=== PATIENT | female | born 1980 | race Caucasian/White ===

== ENCOUNTER 2017-02-15 12:19 | Emergency (ER) | payer OTHER ==
[~2017-02-15] VITALS: Wt 54.4 kg
[~2017-02-15 12:19] MED LIST: AMOXICILLIN500 M2 PO; ANAPROX DS550 MG PO; CLINDAMYCIN HC300 MG PO; COMPAZINE10 MG PO; CYCLOBENZAPRINE10 MG PO; FLAGYL500 MG PO; HYDROCODONE BIT1 T11 PO; MEDROL DOSEPAK4 MG PO; MUCINEX600 MG PO; NAPROSYN500 MG PO; NEURONTIN100 MG PO; NKHM; NORCO 10-325 T1 EACH PO; NORCO 5-325 TA1 EACH PO; PREDNISONE10 MG PO; PROTONIX40 MG PO; PROVENTIL0.09 MG/AC IH; ULTRAM50 MG PO; VOLTAREN50 M1 PO; ZITHROMAX Z PA250 MG PO
[2017-02-15 12:49] LABS: BASO % 0.1 % (0.0-1.0); EOS % 0.1 % (1.0-4.0); HEMATOCRIT 41.1 % (37.0-47.0); HEMOGLOBIN 14.5 g/dl (12.0-16.0); LYMPH # 1.9 10*3/uL (1.3-4.4); LYMPH % 13.2 % (27.0-41.0); MEAN CELL VOLUME 87.6 fl (81.0-99.0); MEAN CORPUSCULAR HGB 30.9 pg (27.0-31.0); MEAN CORPUSCULAR HGB CONC 35.3 g/dl (33.0-37.0); MEAN PLATELET VOLUME 9.3 fl (9.6-12.3); MONO # 0.7 10*3/uL (0.1-1.0); MONO % 5.3 % (3.0-9.0); NEUT # 11.4 10*3/uL (2.3-7.9); NEUT % 80.9 % (47.0-73.0); PLATELET COUNT AUTOMATED 200 10*3/uL (130-400); RED BLOOD COUNT 4.69 10*6/uL (4.10-5.10); RED CELL DISTRI WIDTH 12.1 % (0-14.5); WHITE BLOOD COUNT 14.1 10*3/uL (4.8-10.8)
[2017-02-15 13:04] LABS: ALBUMIN 3.3 gm/dl (3.1-4.5); ALKALINE PHOSPHATASE 64 U/L (45-117); BUN 7 mg/dl (7-24); CHLORIDE 107 mmol/L (98-107); CREATININE 0.62 mg/dL (0.55-1.02); POTASSIUM 3.3 mmol/L (3.5-5.1); SGOT/AST 55 IU/L (3-35); SGPT/ALT 74 U/L (12-78); SODIUM 138 mmol/L (136-145); TOTAL PROTEIN 7.6 gm/dL (6.4-8.2)
[2017-02-15 13:05] LABS: ETHYL ALCOHOL < 3.0 mg/dl (<3)
[2017-02-15 13:21] LABS: BILIRUBIN NEGATIVE (NEGATIVE); BLOOD NEGATIVE (NEGATIVE); CLARITY CLOUDY (CLEAR); COLOR YELLOW (YELLOW); GLUCOSE NEGATIVE (NEGATIVE); KETONE NEGATIVE (NEGATIVE); LEUKO ESTERASE NEGATIVE (NEGATIVE); NITRITE POSITIVE (NEGATIVE); PH 6.5 (5.0-9.0); SPECIFIC GRAVITY <= 1.005 (1.005-1.030)
[2017-02-15 13:28] LABS: URINE AMPHETAMINES < 1000 (1000ng/ml); URINE BARBITURATES < 200 (200ng/ml); URINE BENZODIAZEPINES > 200 (200ng/ml); URINE CANNABINOIDS (THC) < 50 (50ng/ml); URINE COCAINE < 300 (300ng/ml); URINE METHADONE < 300 (300ng/ml); URINE OPIATES < 300 (300ng/ml)
[2017-02-15 13:31] LABS: BACTERIA 4+
[2017-02-15 13:32] LABS: URINE PHENCYCLIDINE < 25 (25ng/ml)
== END 2017-02-15 13:23 | disposition left against medical advice (07) ==
LOC: ED 12:19
PROVIDERS: Emergency Medicine
DX: T40.1X1A Poisoning by heroin, accidental (unintentional), initial encounter (principal); F17.200 Nicotine dependence, unspecified, uncomplicated; F11.10 Opioid abuse, uncomplicated; Z98.890 Other specified postprocedural states; Y92.9 Unspecified place or not applicable

== ENCOUNTER 2017-03-05 10:25 | Emergency (ER) | payer OTHER ==
[~2017-03-05] VITALS: Wt 59.0 kg
[2017-03-05 10:48] VITALS: BP 131/100
[2017-03-05 12:45] LABS: URINE AMPHETAMINES < 1000 (1000ng/ml); URINE BARBITURATES < 200 (200ng/ml); URINE BENZODIAZEPINES < 200 (200ng/ml); URINE CANNABINOIDS (THC) < 50 (50ng/ml); URINE COCAINE < 300 (300ng/ml); URINE METHADONE < 300 (300ng/ml); URINE OPIATES < 300 (300ng/ml)
[2017-03-05 12:46] LABS: URINE PHENCYCLIDINE < 25 (25ng/ml)
== END 2017-03-05 16:47 | disposition left against medical advice (07) ==
LOC: ED 10:25 → EDHOLD 15:51 → ED 15:51 → 5E 16:28 → EDHOLD 16:28 → ED 16:47
PROVIDERS: Physician Assistant
DX: S32.010A Wedge compression fracture of first lumbar vertebra, initial encounter for closed fracture (principal); F11.23 Opioid dependence with withdrawal; F17.200 Nicotine dependence, unspecified, uncomplicated; F14.10 Cocaine abuse, uncomplicated; Z98.890 Other specified postprocedural states; W01.0XXA Fall on same level from slipping, tripping and stumbling without subsequent striking against object, initial encounter; Y93.89 Activity, other specified; Y92.89 Other specified places as the place of occurrence of the external cause; Y99.9 Unspecified external cause status

== ENCOUNTER 2017-03-08 13:45 | Emergency (ER) | payer OTHER ==
[~2017-03-08] VITALS: Wt 59.0 kg
[2017-03-08] MEDS ORDERED: ZOFRAN4 MG PO (14:13)
== END 2017-03-08 14:27 | disposition home or self-care (01) ==
LOC: ED 13:45
DX: F11.20 Opioid dependence, uncomplicated (principal); F17.200 Nicotine dependence, unspecified, uncomplicated; Z98.890 Other specified postprocedural states

== ENCOUNTER 2017-03-10 10:16 | Inpatient (IN) | payer OTHER ==
[~2017-03-10] VITALS: Ht 152.4 cm; Wt 59.0 kg
[~2017-03-10 10:16] MED LIST changes: +ZOFRAN4 MG PO
[2017-03-10 11:35] VITALS: BP 127/84
--- NOTE | 2017-03-10 11:35 | NUR ---
A 36, admitted to , under the services of STERLING Hamilton DO with a diagnosis of OPIATE WITHDRAWL. Chief complaint is OPIATE WITHDRAWL. Patient arrived via ambulatory from [place]. Monitor applied. Initial assessment completed. Vital signs taken and recorded. STERLING HAMILTON DO notified of admission to the unit. Orders received. See assessment for past medical history, medications and allergies. Patient and/or family oriented to unit. [facility] visitation policy reviewed. Clothing/patient valuable form completed. [address]
[2017-03-10 11:59] LABS: BASO % 0.1 % (0.0-1.0); EOS # 0.1 10*3/uL (0.0-0.4); EOS % 1.2 % (1.0-4.0); HEMATOCRIT 43.1 % (37.0-47.0); HEMOGLOBIN 14.5 g/dl (12.0-16.0); LYMPH % 12.6 % (27.0-41.0); MEAN CELL VOLUME 92.9 fl (81.0-99.0); MEAN CORPUSCULAR HGB 31.3 pg (27.0-31.0); MEAN CORPUSCULAR HGB CONC 33.6 g/dl (33.0-37.0); MEAN PLATELET VOLUME 8.8 fl (9.6-12.3); MONO # 0.3 10*3/uL (0.1-1.0); MONO % 4.4 % (3.0-9.0); NEUT # 6.3 10*3/uL (2.3-7.9); NEUT % 81.3 % (47.0-73.0); PLATELET COUNT AUTOMATED 279 10*3/uL (130-400); RED BLOOD COUNT 4.64 10*6/uL (4.10-5.10); RED CELL DISTRI WIDTH 13.4 % (0-14.5); WHITE BLOOD COUNT 7.8 10*3/uL (4.8-10.8)
[2017-03-10 12:00] VITALS: BP 127/84
[2017-03-10 12:16] LABS: ALBUMIN 3.4 gm/dl (3.1-4.5); ALKALINE PHOSPHATASE 110 U/L (45-117); BUN 3 mg/dl (7-24); CHLORIDE 104 mmol/L (98-107); CREATININE 0.67 mg/dL (0.55-1.02); POTASSIUM 4.3 mmol/L (3.5-5.1); SGOT/AST 18 IU/L (3-35); SGPT/ALT 39 U/L (12-78); SODIUM 138 mmol/L (136-145); TOTAL PROTEIN 7.7 gm/dL (6.4-8.2)
[2017-03-10 12:25] LABS: BETA-HCG, QUANT < 1.0 mIU/mL (1-3); ETHYL ALCOHOL < 3.0 mg/dl (<3)
--- NOTE | 2017-03-10 12:30 | NUR ---
PT GIVEN PRN MEDS VISTERAL, BENTYL, ROBOXIN, AND ORDERED SUBUTEX. PT IS CALM AND PLEASENT. WILL CONTINUE TO MONITOR.
[2017-03-10 13:14] LABS: BILIRUBIN NEGATIVE (NEGATIVE); BLOOD NEGATIVE (NEGATIVE); CLARITY CLEAR (CLEAR); COLOR YELLOW (YELLOW); GLUCOSE NEGATIVE (NEGATIVE); KETONE NEGATIVE (NEGATIVE); LEUKO ESTERASE NEGATIVE (NEGATIVE); NITRITE NEGATIVE (NEGATIVE); SPECIFIC GRAVITY <= 1.005 (1.005-1.030); UROBILINOGEN 0.2 E.U./dl (0.2-1.0)
[2017-03-10 13:20] LABS: URINE AMPHETAMINES < 1000 (1000ng/ml); URINE BARBITURATES < 200 (200ng/ml); URINE BENZODIAZEPINES < 200 (200ng/ml); URINE CANNABINOIDS (THC) < 50 (50ng/ml); URINE COCAINE > 300 (300ng/ml); URINE METHADONE < 300 (300ng/ml); URINE OPIATES < 300 (300ng/ml)
[2017-03-10 13:24] LABS: BACTERIA TRACE; WBC 0-2 wbc/hpf (0-5)
[2017-03-10 13:29] LABS: URINE PHENCYCLIDINE < 25 (25ng/ml)
[2017-03-10 16:00] VITALS: BP 130/74
[2017-03-10 20:00] VITALS: BP 127/90
--- NOTE | 2017-03-10 21:30 | NUR ---
Patient reports the following symptoms of withdrawal: body aches, leg pain, nausea and cocaine cravings. Patient given scheduled/PRN medication to control withdrawal symptoms. Close observation will be maintained.
--- NOTE | 2017-03-10 22:30 | NUR ---
Patient resting quietly in bed with eyes closed. PRN medications effective. Will continue to monitor. Call light within reach.
[2017-03-11] VITALS: BP 118/54
--- NOTE | 2017-03-11 00:25 | NUR ---
24 HR chart check completed.
[2017-03-11 04:00] VITALS: BP 114/65
[2017-03-11 08:00] VITALS: BP 115/50
[2017-03-11 12:00] VITALS: BP 122/87
--- NOTE | 2017-03-11 15:15 | NUR ---
PATIENT WAS CAUGHT SMOKING IN THE SHOWER BY A STAFF MEMBER. EXPLAINED TO THE PATIENT THE IMPORTANCE OF ADHERING TO THE NO SMOKING POLICY & THE RISK SHE IS PUTTING ON THE UNIT BECAUSE OF THE OXYGEN USE. OTHER METHODS OF NICOTINE CONTROL ARE BEING OFFERED.
--- NOTE | 2017-03-11 15:43 | NUR ---
D/C PLANNING: PATIENT'S PLAN OF ACTION IS GOING TO OUTPATIENT TREATMENT AT [facility] [place]. PATIENT WANTS THE VIVITROL SHOT. TJ PHELPS B.A. VP PURCHASING
[2017-03-11 16:00] VITALS: BP 138/87
--- NOTE | 2017-03-11 18:30 | NUR ---
PER PATIENT C/O ANXIETY, MUSCLE ACHES, AND NAUSEA, VISTARIL, ZOFRAN, AND ROBAXIN WERE GIVEN. WILL MONITOR.
--- NOTE | 2017-03-11 19:50 | NUR ---
PATIENT RESTING QUIETLY IN BED WITH FAMILY AT BEDSIDE. PATIENT HAS NO COMPLAINTS AT THE MOMENT. PLEASANT/COOPERATIVE WITH CARE. RESPIRATIONS ARE EASY/REG. NO SXS OF DISTRESS. CALL LIGHT IS IN REACH. WILL MONITOR.
[2017-03-11 20:00] VITALS: BP 142/86
--- NOTE | 2017-03-11 21:49 | NUR ---
Patient reports the following symptoms of withdrawal: body aches, leg pain, nausea and cravings. Patient given scheduled/PRN medication to control withdrawal symptoms. Close observation will be maintained.
--- NOTE | 2017-03-11 22:50 | NUR ---
Patient resting. Responding to scheduled medications with fewer complaints of pain and anxiety.
[2017-03-12] VITALS: BP 140/85
--- NOTE | 2017-03-12 03:55 | NUR ---
PATIENT SLEEPING. RESPIRATIONS EASY/REG. NO SXS OF DISTRESS. CALL LIGHT IS IN REACH. WILL MONITOR
--- NOTE | 2017-03-12 09:30 | NUR ---
PATIENT GIVEN ROBAXIN, VISTARIL, AND REQUIP FOR MUSCLE ACHES, ANXIETY, AND RESTLESS LEGS. WILL MONITOR EFFECTIVENESS. CALL LIGHT IN REACH.
[2017-03-12 09:58] VITALS: BP 124/88
--- NOTE | 2017-03-12 10:01 | NUR ---
BOOKBINDER CHIEF BJ [facility] IN TO SEE PATIENT.
--- NOTE | 2017-03-12 10:30 | NUR ---
ROBAXIN, VISTARIL, AND REQUIP EFFECTIVE. PATIENT RESTING IN BED AT THIS TIME. CALL LIGHT IN REACH.
--- NOTE | 2017-03-12 15:54 | NUR ---
D/C PLAN: PATIENT IS GOING TO [facility] FOR THE VIVITROL SHOT. PATIENT IS AWARE OF APPOINTMENT DATE AND TIME. PATIENT UNDERSTANDS AND AGREES TO AFTERCARE PLAN. Sharath LARSEN COORDINATOR
[2017-03-12 16:00] VITALS: BP 126/62
--- NOTE | 2017-03-12 16:02 | NUR ---
PATIENT GIVEN ROBAXIN AND VISTARIL FOR MUSCLE ACHES AND ANXIETY. WILL MONITOR FOR EFFECTIVENESS. CALL LIGHT IN REACH.
--- NOTE | 2017-03-12 17:00 | NUR ---
ROBAXIN AND VISTARIL EFFECTIVE. PATIENT RESTING IN BED. CALL LIGHT IN REACH.
--- NOTE | 2017-03-12 17:47 | NUR ---
PATIENT LEFT [facility]J HANSEN AND NURSING MERCURY RECOVERER NOTIFIED.
== END 2017-03-12 17:47 | disposition left against medical advice (07) | DRG 894 ==
LOC: 4E 10:16
PROVIDERS: Hospitalist; ADMIT Internal Medicine
DX: F11.23 Opioid dependence with withdrawal (principal); E44.1 Mild protein-calorie malnutrition; F14.10 Cocaine abuse, uncomplicated; F17.210 Nicotine dependence, cigarettes, uncomplicated; Z53.21 Procedure and treatment not carried out due to patient leaving prior to being seen by health care provider; Z87.311 Personal history of (healed) other pathological fracture; Z98.891 History of uterine scar from previous surgery; Z82.49 Family history of ischemic heart disease and other diseases of the circulatory system; Z68.25 Body mass index [BMI] 25.0-25.9, adult

== ENCOUNTER 2023-12-30 20:45 | Emergency (ER) | payer OTHER ==
[~2023-12-30] VITALS: Ht 152.4 cm; Wt 59.0 kg
[2023-12-30] MEDS ORDERED: VIBRAMYCIN100 MG PO (23:25)
[2023-12-30] MEDS ORDERED: Doxycycline Hyclate 100 MG CAP PO ONE (23:25)
== END 2023-12-30 23:35 | disposition home or self-care (01) ==
LOC: ED 20:45
DX: L02.412 Cutaneous abscess of left axilla (principal); F17.200 Nicotine dependence, unspecified, uncomplicated; Z98.890 Other specified postprocedural states